=== PATIENT | male | born 1945 | race Caucasian/White ===

== ENCOUNTER 2017-11-30 06:55 | Day surgery (SDC) | payer MEDICARE, BC ==
[~2017-11-30 06:55] MED LIST: Lactated Ringers 1,000 ML IV SCH; Lidocaine 1%/Sod Bicarbonate in NS 8.4% 1 ML Syringe IDERM PRN; Sodium Chloride 0.9% 10 ML Syringe FLUSH PRN
[2017-11-30] MEDS ORDERED: Lidocaine 1% 4 ML ONE (06:57)
[2017-11-30] MEDS ORDERED: fentaNYL 100 MCG/2 ML SDV ONE (06:57)
[2017-11-30] MEDS ORDERED: Propofol 200 MG/20 ML SDV ONE (06:57)
--- NOTE | 2017-11-30 07:27 | PCM.PREANE ---
Preanesthetic Assessment - Anesthesia/Transfusion/Family Hx Anesthesia History: Prior Anesthesia Without Reaction Family History of Anesthesia Reaction: No Transfusion History: No Prior Transfusion(s) - Review of Systems General: No Symptoms Pulmonary: No Symptoms Cardiovascular: No Symptoms Gastrointestinal: No Symptoms Neurological: No Symptoms Other: Reports: Easy Bruising - Physical Assessment NPO Status Date: 11/29/17 NPO Status Time: 23:30 O2 Sat by Pulse Oximetry: 96 Respiratory Rate: 16 Vital Signs: Last Vital Signs Temp 98.0 F 11/30/17 07:05 Pulse 66 11/30/17 07:05 Resp 16 11/30/17 07:05 BP 137/75 11/30/17 07:05 Pulse Ox 96 11/30/17 07:05 Height: 5 ft 4 in Weight: 74.389 kg ASA Class: 2 Mental Status: Alert & Oriented x3 Airway Class: Mallampati = 1 Dentition: Reports: Normal Dentition Thyro-Mental Finger Breadths: 3 Mouth Opening Finger Breadths: 3 ROM/Head Extension: Full Lungs: Clear to Auscultation, Normal Respiratory Effort Cardiovascular: Regular Rate, Regular Rhythm - Allergies Allergies/Adverse Reactions: Allergies Allergy/AdvReac Type Severity Reaction Status Date / Time Sulfa (Sulfonamide Allergy Itching Verified 11/29/17 09:01 Antibiotics) - Blood Blood Available: No - Acknowledgements Anesthesia Type Planned: MAC Pt an Appropriate Candidate for the Planned Anesthesia: Yes Alternatives and Risks of Anesthesia Discussed w Pt/Guardian: Yes Pt/Guardian Understands and Agrees with Anesthesia Plan: Yes PreAnesthesia Questionnaire HEENT History: Reports: Other (See Below) (glasses) Cardiovascular History: Reports: High Cholesterol Gastrointestinal History: Reports: Colon Polyp Musculoskeletal History: Reports: Arthritis Oncologic (Cancer) History: Reports: None - Past Surgical History HEENT Surgical History: Reports: Other (See Below) Other HEENT Surgeries/Procedures: saliva gland GI Surgical History: Reports: Colonoscopy Male Surgical History: Reports: Vasectomy Dermatological Surgical History: Reports: Other (See Below) - SUBSTANCE USE Smoking Status *Q: Never Smoker Tobacco Use Within Last Twelve Months: No Second Hand Smoke Exposure: No Days Per Week of Alcohol Use: 1 (or less) Recreational Drug Use History: No - HOME MEDS Home Medications: Home Meds Alfuzosin HCl [Alfuzosin HCl ER] 10 mg PO DAILY 11/29/17 [History] Aspirin [Adult Low Dose Aspirin EC] 81 mg PO DAILY 11/29/17 [History] Finasteride 5 mg PO DAILY 11/29/17 [History] Rosuvastatin [Crestor] 5 mg PO DAILY 11/29/17 [History] - CURRENT (IN HOUSE) MEDS Current Meds: Current Medications Lactated Ringer's (Ringers, Lactated) 1,000 mls @ 125 mls/hr IV ASDIRECTED CARL Stop: 11/30/17 23:00 Lidocaine/Sodium Bicarbonate (Buffered Lidocaine 1% In Ns 8.4%) 0.25 ml IDERM ONETIME PRN PRN Reason: Prior to IV Start Stop: 11/30/17 18:00 Sodium Chloride (Saline Flush) 10 ml FLUSH ASDIRECTED PRN PRN Reason: Keep Vein Open Stop: 11/30/17 18:00 Discontinued Medications Fentanyl (Sublimaze) Confirm Administered Dose 100 mcg .ROUTE .STK-MED ONE Stop: 11/30/17 06:58 Lidocaine HCl (Xylocaine-Mpf 1%) Confirm Administered Dose 4 mls @ as directed .ROUTE .STK-MED ONE Stop: 11/30/17 06:58 Propofol (Diprivan 20 Ml) Confirm Administered Dose 200 mg .ROUTE .STK-MED ONE Stop: 11/30/17 06:58
--- NOTE | 2017-11-30 08:28 | PCM48HPAN ---
Post Anesthesia Note - EVALUATION WITHIN 48HRS OF ANESTHETIC Vital Signs in Normal Range: Yes Patient Participated in Evaluation: Yes Respiratory Function Stable: Yes Airway Patent: Yes Cardiovascular Function Stable: Yes Hydration Status Stable: Yes Pain Control Satisfactory: Yes Nausea and Vomiting Control Satisfactory: Yes Mental Status Recovered: Yes
--- NOTE | 2017-11-30 08:34 | PCM.OPNOTE ---
- General Post-Op/Procedure Note Date of Surgery/Procedure: 11/30/17 Operative Procedure(s): Colonoscopy with cold forceps rectal polypectomy Findings: 1. Prostatic hypertrophy on rectal exam 2. Sigmoid and left descending colonic diverticula 3. Diminutive rectal polyp less than 5 mm Pre Op Diagnosis: History of multiple colorectal polyps Post-Op Diagnosis: 1. Prostatic hypertrophy. 2. Sigmoid and left descending colonic diverticula. 3. Diminutive rectal polyp Anesthesia Technique: MAC, Moderate Sedation Primary Surgeon: Jose Gibbons Pathology: Rectal polyp EBL in mLs: 0 Complications: None Condition: Good Free Text/Narrative:: After adequate IV sedation and analgesia was obtained with monitoring the patient was placed on his left side. Perianal inspection and digital rectal examination were performed next and were remarkable for mild to moderate prostatic enlargement with no appreciable nodules. A lubricated colonoscope was inserted into the rectum and advanced to the cecum without difficulty. The bowel preparation was excellent. The cecum ascending colon and transverse colons were endoscopically normal with no mass lesions or inflammatory changes seen. The descending colon had a few scattered uncomplicated diverticuli. The sigmoid had diverticuli as well which were slightly larger and were associated with hypertrophy of the circular muscular. There were no polyps or inflammatory changes in the seen. In the distal third of the rectum there was a diminutive polyp about 5 mm in diameter. I removed this lesion with the cold forceps and retrieved the specimen. Air was removed as I finished the procedure which he tolerated well. Software Controls Engineer photographs taken for the patient and for the medical record.
== END 2017-11-30 09:04 | disposition home or self-care (01) ==
LOC: JD.SDS 06:55
PROVIDERS: ATTEND Surgery
DX: Z12.11 Encounter for screening for malignant neoplasm of colon (principal); K57.30 Diverticulosis of large intestine without perforation or abscess without bleeding; D12.8 Benign neoplasm of rectum; R94.6 Abnormal results of thyroid function studies; N40.0 Benign prostatic hyperplasia without lower urinary tract symptoms; E78.5 Hyperlipidemia, unspecified; M19.90 Unspecified osteoarthritis, unspecified site; R73.01 Impaired fasting glucose; R41.3 Other amnesia; H65.91 Unspecified nonsuppurative otitis media, right ear; Z88.2 Allergy status to sulfonamides; Z86.010 Personal history of colon polyps; Z79.82 Long term (current) use of aspirin; Z79.899 Other long term (current) drug therapy; Z98.52 Vasectomy status
CPT/HCPCS: 45380; J3010; J7120; 00812; 88305; J2704